=== PATIENT | male | born 1970 | race African-American/Black ===

== ENCOUNTER 2017-01-23 21:21 | Inpatient (IN) ==
[2017-01-23] MEDS ORDERED: MORPHINE 2 MG/1 ML SYRINGE IV STA (22:13)
[2017-01-23] MEDS ORDERED: SODIUM CHLORIDE 0.9% 1,000 ML IV STA (22:13)
[2017-01-23] MEDS ORDERED: ONDANSETRON 4 MG/2 ML VIAL IV STA (22:13)
[2017-01-23] MEDS ORDERED: MORPHINE 2 MG/1 ML SYRINGE ONE (22:22)
[2017-01-23] MEDS ORDERED: ONDANSETRON 4 MG/2 ML VIAL ONE (22:22)
[2017-01-23 23:06] LABS: Alanine Aminotransferase 36 U/L (16-61); Albumin 2.9 G/DL (3.4-5.0); Alkaline Phosphatase 90 U/L (45-117); Aspartate Amino Transferase 24 U/L (0-37); Bilirubin,Total < 0.39 MG/DL (0.2-1.0); Blood Urea Nitrogen 8 MG/DL (7-18); Calcium 8.1 MG/DL (8.5-10.1); Glucose 304 MG/DL (74-106); Osmolality,Calculated 291.1 MOS/KG (273-304); Potassium 4.2 MMOL/L (3.5-5.1); Sodium 142 MMOL/L (136-145); Total Protein 6.3 G/DL (6.4-8.3)
[2017-01-23 23:16] LABS: Eosinophils % 0.3 % (0.00-10.9); Hematocrit 42.1 VOL% (42.0-52.0); Hemoglobin 13.9 GM/DL (14.0-18.0); Immature Granulocytes % 0.5 %; Immature Granulocytes Absolute 0.05 #; Lymphocytes # 1.1 10*3/uL (1.4-4.0); Lymphocytes % 12.3 % (21.2-54.2); Mean Corpuscular Hemoglobin 28 PG (27-34); Mean Corpuscular Volume 83.9 FL (87-102); Mean Platelet Volume 11.1 FL (9.6-12.0); Monocytes # 0.5 10*3/uL (0.11-0.8); Monocytes % 5.1 % (1.7-12.7); Neutrophils # 7.5 10*3/uL (1.4-7.4); Neutrophils % 81.8 % (38.7-73.9); Platelet Count 155 T/CUMM (130-400); Red Blood Count 5.02 MC/CUMM (3.8-5.5); Red Cell Distribution Width 12.7 % (9.3-17.3); White Blood Count 9.2 T/CUMM (4-12)
[2017-01-23 23:31] LABS: Apearance,Urine CLEAR (Clear); Bilirubin,Urine Negative (Negative); Blood, Urine Negative (Negative); Glucose,Urine (UA) >=500 mg/dL (Negative); Ketones,Urine Negative (Negative); Mucus,Urine Occasional /LPF (Occasional); Nitrite,Urine Negative (Negative); Protein,Urine Negative; RBC,Urine 1 /HPF (0-4); Squamous Epithelial Cell,Urine Occasional /HPF (0-10); Urine Color Straw (Yellow); Urine Specific Gravity 1.033 (1.001-1.035); Urine Urobilinogen < 2.0 EU/DL (0.2-1.0); WBC,Urine 2 /HPF (0-6)
--- NOTE | 2017-01-23 23:46 | Emergency Department Note ---
ILj Kasabria, am scribing for, and in the presence of, Alejandra Garza MD 22:20. IGreg Leanne, MD, personally performed the services described in this documentation, ascribed by Alexandru Calhoun in my presence, and it is both accurate and complete . Arrival - Arrival Chief Complaint: Nausea/Vomiting/Diarrhea Stated Complaint: hurting all over/diarreha/vomitting ED Nursing Triage Note: Patient to triage with c/o 1 weeks worth of N/V/D along with ABD pain. Patient was seen here earlier today, given some medication, and sent home. Patient states the zofran has been helping some but he still feels sick. last vomitted 30 mins ago, patient had diarrhea at that time as well. Mode of Arrival: Ambulatory Limitations: No Limitations Source: Patient Time Seen by Provider: 01/23/17 22:12 - History of Present Illness HPI Narrative: This is a 46 y/o black male presenting to the ED with c/o nausea, vomiting, abdominal pain, and diarrhea that onset one week ago. Pt states he was seen earlier today and was given medication for diarrhea and was told if the problem got worse to come back to the ED. He states when he got home the vomiting onset again with diarrhea. He denies fever, chills, back pain, hematochezia, hematemesis, and dysuria. Pt has had his gallbladder removed. He has taken Zofran which has helped but still feels nauseated. Onset (ago): unknown Consistency: constant Severity: moderate Allergies/Adverse Reactions: Allergies Allergy/AdvReac Type Severity Reaction Status Date / Time Penicillins Allergy SHORTNESS Verified 01/23/17 21:35 OF BREATH Home Medications: Home Medications Medication Instructions Recorded Confirmed Type Olmesartan [Benicar] 20 mg PO QAM 11/21/14 01/23/17 History Potassium Bicarbonate/Cit AC 25 meq PO AC BREAKFAST 11/21/14 01/23/17 History [Potassium 25 Meq Tablet Eff] metFORMIN [Glucophage] 500 mg PO BID W/MEALS 11/21/14 01/23/17 History Diphenoxylate/Atrop 2.5-0.025 1 tablet PO Q6H PRN #10 tablet 01/23/17 01/23/17 Rx [Lomotil Tab] Insulin Glargine [Lantus] 60 unit SUBCUT BEDTIME 01/23/17 01/23/17 History Insulin Lispro [HumaLOG] 8 unit SUBCUT DAILY W/BREAKFAST 01/23/17 01/23/17 History Ondansetron Odt Tab [Zofran Odt] 4 mg PO Q6H PRN #12 tablet 01/23/17 01/23/17 Rx Review of System - Review of System 12 point system: reviewed and no additional remarkable complaints except as stated - Review of System Constitutional: Absent: chills, fever, weakness Eyes: Absent: vision change Head/Ears/Nose/Throat: Absent: nasal drainage Respiratory: Absent: cough, wheezing Cardiovascular: Absent: chest pain, dyspnea on exertion Gastrointestinal: Present: abdominal pain, nausea, vomiting, diarrhea Genitourinary male: Absent: dysuria Musculoskeletal: Absent: arm pain, back pain, leg pain, neck pain Skin: Absent: rash Neurological: Absent: headache, weakness, confusion, vertigo Psychiatric: Absent: anxiety Endocrine: Absent: fatigue Hematological/Lymphatic: Absent: easy bleeding Allergic/Immunologic: Absent: facial swelling Medical,Surgical,& Family Hx - Medical History Cardio: History of: Hypertension No history of: [place] Endocrine: History of: Diabetes Mellitus (IDDM), Dyslipidemia Renal: No history of: Dialysis Gastrointestinal: History of: Diverticulitis/ Diverticulosis, GI Problems ( irritable bowel syndrome) No history of: GERD, Liver Problems, Pancreatitis Other: History of: Anaphylaxis (PCN) - Surgical History Cardiac Surgeries: Sugical HX of: Cardiac Catheterization (Negative heart cath in 2011. & 08/2013) Abdominal Surgeries: Surgical HX of: Cholecystectomy Orthopedic Surgeries: Surgical HX of;: Orthopedic Surgery (knee surgery) - Family History Family History: Reports;: Family Cancer (SISTER-PELVIC), Family Diabetes (SISTER , MOTHER), Family Heart Disease (SISTER), Family Hypertension (SISTER) - Social History Smoking Status: Never smoker Frequency of Alcohol Use: None Type of Drug Use: None Exam Vital Signs: Vital Signs Temperature 97.3 F L 01/23/17 21:30 Pulse Rate 116 H 01/23/17 21:30 Respiratory Rate 18 01/23/17 21:30 Blood Pressure 137/86 01/23/17 21:30 O2 Sat by Pulse Oximetry 95 01/23/17 21:30 - General General appearance: alert, in no apparent distress - Head Head exam: Present: atraumatic, normocephalic, normal inspection - Eye Eye exam: Present: normal appearance, PERRL, EOMI - ENT ENT exam: Present: normal exam, normal oropharynx, mucous membranes moist, TM's normal bilaterally, normal external ear exam - Neck Neck exam: Present: normal inspection, full ROM, trachea midline. Absent: tenderness - Chest Chest inspection: Present: normal inspection, symmetric chest wall rise. Absent : tenderness - Respiratory Respiratory exam: Present: normal lung sounds bilaterally - Cardiovascular Cardiovascular exam: Present: regular rate, normal rhythm, normal heart sounds - Abdominal Exam Abdominal exam: Present: soft, tenderness, normal bowel sounds. Absent: distention - Extremities Exam Extremities exam: Present: normal inspection, full ROM, normal capillary refill. Absent: tenderness, pedal edema, calf tenderness - Back Exam Back exam: Present: normal inspection, full ROM. Absent: tenderness - Neurological Exam Neurological exam: Present: alert, oriented X3, CN II-XII intact, normal gait, reflexes normal - Psychiatric Psychiatric exam: Present: normal affect, normal mood - Skin Skin exam: Present: warm, dry, intact, normal color. Absent: rash, diaphoresis , erythema Results - Labs CBC & BMP: 01/23/17 22:55 01/23/17 22:27 Lab Results: I have reviewed the patients labs - Diagnostic Findings Procedure: CT Abdomen and Pelvis: report reviewed by me (w IV con: New hazy mesenteric fat stranding, with assoicated scattered prominent mesentric lymphoma some of which are midly enlarges, most consistent with mesenteric panniculitis, although, findings of lymphoma can have similar appearance, thus clinical correlation and further evaluation and /or followup are advised.) Disposition Clinical Impression: Abdominal pain, Panniculitis Case discussed with: patient Additional Instructions: will obs overnight for abd pain, vomiting.
[2017-01-23] MEDS ORDERED: ONDANSETRON 4 MG/2 ML VIAL IV PRN (23:49)
[2017-01-23] MEDS ORDERED: ACETAMINOPHEN 325 MG TABLET PO PRN (23:49)
[2017-01-23] MEDS ORDERED: DIPHENOXYLATE/ATROPINE 2.5-0.025 MG TABLET PO PRN (23:49)
[2017-01-23] MEDS ORDERED: GLUCAGON 1 MG VIAL IM PRN (23:51)
[2017-01-23] MEDS ORDERED: DEXTROSE 50% 25 GM/50 ML VIAL IV PRN (23:51)
--- NOTE | 2017-01-23 23:53 | Hospitalist History & Physical ---
Assessment and Plan (1) Mesenteric panniculitis Status: Acute Current Visit: Yes (2) Insulin dependent diabetes mellitus Status: Acute Current Visit: Yes (3) Hypertension Status: Acute Current Visit: Yes Qualifiers: Hypertension type: essential hypertension Qualified Code(s): I10 - Essential (primary) hypertension (4) Weight loss Status: Acute Current Visit: Yes (5) Abdominal pain Status: Acute Assessment and plan: Plan: Start IV antibiotics Supportive care for pain and nausea Stool for C. difficile and culture, WBCs Sliding scale insulin and Accu-Cheks, check A1c Continue remainder of home medications as appropriate. Current Visit: Yes Qualifiers: Abdominal location: lower abdomen, unspecified Qualified Code(s): R10.30 - Lower abdominal pain, unspecified History of Present Illness Chief complaint: Worsening abdominal pain, diarrhea and nausea vomiting History of present illness: Mr. Linton is a 46 year old male with hypertension, insulin-dependent diabetes who was seen previously in the emergency room for nausea vomiting abdominal pain , given antiemetics and pain medicines and released. He returns with frequent watery diarrhea, nonbloody, diffuse midabdominal pain, and multiple episodes of nonbloody emesis. CT abdomen pelvis showed mesenteric adenopathy/panniculitis. No chest pain, no fever, no shortness of breath. He states he reportedly lost about 20 pounds in the last month. He reports his pain a 7 out of 10 at worst, crampy, diffuse across the mid abdomen, nonradiating. Home Medications Medication Instructions Recorded Confirmed Type Olmesartan [Benicar] 20 mg PO QAM 11/21/14 01/24/17 History Potassium Bicarbonate/Cit AC 25 meq PO AC BREAKFAST 11/21/14 01/24/17 History [Potassium 25 Meq Tablet Eff] metFORMIN [Glucophage] 500 mg PO BID W/MEALS 11/21/14 01/24/17 History Diphenoxylate/Atrop 2.5-0.025 1 tablet PO Q6H PRN #10 tablet 01/23/17 01/24/17 Rx [Lomotil Tab] Insulin Glargine [Lantus] 60 unit SUBCUT BEDTIME 01/23/17 01/24/17 History Insulin Lispro [HumaLOG] 8 unit SUBCUT DAILY W/BREAKFAST 01/23/17 01/24/17 History Ondansetron Odt Tab [Zofran Odt] 4 mg PO Q6H PRN #12 tablet 01/23/17 01/24/17 Rx Allergies Allergy/AdvReac Type Severity Reaction Status Date / Time Penicillins Allergy SHORTNESS Verified 01/23/17 21:35 OF BREATH Medical,Surgical,& Family Hx - Medical History Cardio: History of: Hypertension No history of: [place] Endocrine: History of: Diabetes Mellitus (IDDM), Dyslipidemia Renal: No history of: Dialysis Gastrointestinal: History of: Diverticulitis/ Diverticulosis, GI Problems ( irritable bowel syndrome) No history of: GERD, Liver Problems, Pancreatitis Other: History of: Anaphylaxis (PCN) - Surgical History Cardiac Surgeries: Sugical HX of: Cardiac Catheterization (Negative heart cath in 2011. & 08/2013) Abdominal Surgeries: Surgical HX of: Cholecystectomy Orthopedic Surgeries: Surgical HX of;: Orthopedic Surgery (knee surgery) - Family History Family History: Reports;: Family Cancer (SISTER-PELVIC), Family Diabetes (SISTER , MOTHER), Family Heart Disease (SISTER), Family Hypertension (SISTER) - Social History Smoking Status: Never smoker Frequency of Alcohol Use: None Type of Drug Use: None Marital Status: Unknown Functional capacity: independent ambulation Review of systems: A 12 point review of systems is negative except as specified in the HPI Exam - Constitutional Vitals: Period Temp Pulse Resp BP Sys/Delacruz Pulse Ox Last 24 Hr 97.3 F-97.3 F 116-116 18-18 137-137/86-86 95 Exam: EXAM: CONSTITUTIONAL: non toxic, NAD HEENT: NC, AT, OP benign, KELI, EOMI CV: RRR no m/g/r RESP: clear B/L, no w/r/r GI: abd soft, diffuse midabdominal tenderness, no rebound, ND, +bowel sounds INTEGUMENTARY: no lesions or rash EXTREMITIES: no c/c/e NEURO: no focal deficits PSYCH: unremarkable, A/O x3 Results - Labs CBC & BMP: 01/23/17 22:55 01/23/17 22:27 Lab Results: I have reviewed the past 24 hour labs - Diagnostic Findings Procedure: CT Abdomen and Pelvis: image reviewed by me, report reviewed by me
[2017-01-24] MEDS ORDERED: hydrALAZINE 20 MG/1 ML VIAL IV PRN (00:19)
[2017-01-24] MEDS: INSULIN REGULAR 100 UNIT/ML SUBCUT SCH ×4 (01:01→17:35)
[2017-01-24] MEDS: CIPROFLOXACIN INJ 400 MG in PREMIX 1 EACH IV SCH ×3 (01:01→23:52)
[2017-01-24] MEDS: MORPHINE 2 MG/1 ML SYRINGE IV PRN ×2 (01:02→08:28)
--- NOTE | 2017-01-24 05:56 | CT Report ---
CT abdomen pelvis w con Indication: Bowel obstruction, nausea vomiting, abdominal pain Comparison: 08/12/2014 CT abdomen and pelvis. Technique: CT of the abdomen and pelvis was performed following administration of intravenous contrast. Coronal and sagittal reformatted images were additionally created and submitted for review. The total DLP is 2011 mGy*cm. Dose reduction: This CT exam was performed using one or more of the following dose reduction techniques: Automated exposure control, automated adjustment of the mA and/or KV according to patient size, or use of iterative reconstruction technique. Findings: Very minimal posterior basilar dependent atelectatic changes are noted bilaterally. Lung bases are otherwise clear. There is no pleural or pericardial effusion. ABDOMEN: Liver/Gallbladder: No abnormal enhancing hepatic lesions. There has been prior cholecystectomy. No biliary ductal dilatation. Portal vein is patent. Spleen: No acute findings. Pancreas: No acute findings. Adrenals: Within normal limits in appearance. Kidneys: The kidneys enhance symmetrically. There is no evidence of obstructive uropathy. There is symmetric excretion of contrast on delayed images from both kidneys. 3 cm lower pole hypodense lesion left kidney is unchanged from prior most compatible with simple cyst. Bowel/mesentery: Small bowel is nondilated. There is no evidence of free fluid/air within the abdomen. There are multiple enlarged mesenteric lymph nodes within the central mesentery with surrounding mild haziness, which is of uncertain significance. The findings are essentially unchanged from the 2014 CT abdomen and pelvis and therefore may represent a low-level infectious/inflammatory process. Neoplasm is favored to be much less likely. Moderate stool is noted throughout the colon which is otherwise nondilated. The appendix appears normal. Retroperitoneum: No evidence of aortic aneurysm or significant retroperitoneal adenopathy. PELVIS: No free fluid in the dependent pelvis. The bladder appears grossly unremarkable for degree of distention. Prostate is within normal limits. There is no adenopathy in the pelvis. BONES: No acute or suspicious osseous abnormalities are identified. IMPRESSION: 1. No acute abnormality within the abdomen or pelvis to explain patient's symptoms. 2. Essentially stable appearance of central mesenteric stranding and scattered enlarged mesenteric lymph nodes, which is essentially unchanged when compared to the 2014 CT. Differential considerations include nonspecific/idiopathic mesenteritis. Other infectious/inflammatory process such as celiac disease or neoplastic process such as lymphoma are not excluded but favored to be less likely. Preliminary report by [employer]. 01/24/2017 5:45 AM PROCEDURE INTERPRETED AT [facility] DEPARTMENT OF RADIOLOGY Final Report Signed by: Pieter Howard
[2017-01-24 06:12] LABS: Basophils % 0.1 % (0.0-0.8); Eosinophils # 0.1 10*3/uL (0.0-0.87); Eosinophils % 0.7 % (0.00-10.9); Hematocrit 40.6 VOL% (42.0-52.0); Hemoglobin 13.2 GM/DL (14.0-18.0); Immature Granulocytes % 0.4 %; Immature Granulocytes Absolute 0.03 #; Lymphocytes # 1.6 10*3/uL (1.4-4.0); Lymphocytes % 20.3 % (21.2-54.2); Mean Corpuscular HGB Conc 32.5 GM/DL (32-36); Mean Corpuscular Hemoglobin 27 PG (27-34); Mean Corpuscular Volume 84.2 FL (87-102); Monocytes # 0.5 10*3/uL (0.11-0.8); Neutrophils # 5.5 10*3/uL (1.4-7.4); Neutrophils % 71.5 % (38.7-73.9); Platelet Count 144 T/CUMM (130-400); Red Blood Count 4.82 MC/CUMM (3.8-5.5); White Blood Count 7.6 T/CUMM (4-12)
--- NOTE | 2017-01-24 06:41 | Hospitalist Progress Note ---
Assessment and Plan - Time spent with patient Time spent with patient: Less than 30 minutes (1) Abdominal pain Status: Acute Assessment and plan: At this time patient complains of lower abdominal discomfort with associated diarrhea. Prior this is been having some nausea and vomiting and reported weight loss. He is now been admitted and will continue hydration, IV antiemetics and analgesics, empiric antibiotics while awaiting stool studies, and consult GI for any further recommendations and/or follow-up. Current Visit: No (2) Diabetes mellitus Status: Chronic Assessment and plan: Patient has type 2 diabetes mellitus which is currently requiring insulin therapy. Blood sugars have been running high. Will continue his current medical regimen along with Accu-Cheks and sliding scale and adjust as appropriate. Current Visit: Yes Qualifiers: Diabetes mellitus type: type 2 (3) Hypertension Status: Chronic Assessment and plan: Patient's has essential hypertension. He is currently well controlled and continue current medical regimen. Current Visit: No (4) Weight loss Status: Chronic Assessment and plan: Have consulted GI to assist with initial workup. Further workup will proceed based on patient's clinical response and results of the pending database. Current Visit: Yes Hospitalist: Subjective Interval history: Chart has been reviewed and patient examined. Patient continues to complain of some lower abdominal discomfort and has had some watery diarrhea this morning which he reports is being collected for stool studies. He currently denies any nausea or vomiting, fever or chills. His primary care provider is Dr. Lucy Mckinney. He states that he has seen a GI physician however this been many years ago. Exam - Constitutional Vitals: Period Temp Pulse Resp BP Sys/Delacruz Pulse Ox Last 24 Hr 97.3 F-98.7 F 89-116 18-22 117-150/72-99 95-99 General appearance: no acute distress - Head Head exam: Present: normocephalic, atraumatic - Eye Eye exam: Present: EOMI. Absent: scleral icterus Pupils: Present: KELI - ENT ENT exam: Present: normal oropharynx - Neck Neck exam: Present: normal inspection. Absent: lymphadenopathy, meningismus, tenderness, thyromegaly - Respiratory Respiratory exam: Present: clear to auscultation bilaterally. Absent: rales, rhonchi, wheezes - Cardiovascular Cardiovascular exam: Present: regular rate and rhythm. Absent: gallop, systolic murmur, tachycardia - GI/Abdominal GI/Abdominal exam: Present: normal bowel sounds, soft. Absent: organomegaly, tenderness, rebound - Extremities Exam Extremities exam: Present: normal capillary refill. Absent: calf tenderness, edema - Back Exam Back exam: Present: normal inspection - Neurological Exam Neurological exam: Present: alert, oriented X3, CN II-XII intact. Absent: motor sensory deficit - Psychiatric Psychiatric exam: Present: normal affect, normal mood. Absent: agitated, anxious - Skin Skin exam: Present: warm, dry. Absent: erythema, rash Results - Labs CBC & BMP: 01/24/17 05:28 01/23/17 22:27 Lab Results: I have reviewed the past 24 hour labs - Diagnostic Findings Procedure: CT Abdomen and Pelvis: report reviewed by me
[2017-01-24 06:42] LABS: Albumin 2.6 G/DL (3.4-5.0); Bilirubin,Total 0.4 MG/DL (0.2-1.0); Magnesium 1.6 MG/DL (1.8-2.4); Osmolality,Calculated 288.1 MOS/KG (273-304); Potassium 3.8 MMOL/L (3.5-5.1); Total Protein 5.8 G/DL (6.4-8.3)
[2017-01-24 07:12] LABS: Free T4 (Free Thyroxine) 1.02 NG/DL (0.76-1.46); Thyroid Stimulating Hormone 0.768 uIU/ml (0.358-3.74)
[2017-01-24] MEDS ORDERED: MAGNESIUM SULF INJ 3 GM in SODIUM CHLORIDE 0.9% 100 ML IV ONE (08:14)
[2017-01-24] MEDS: SODIUM CHLORIDE 0.9% 1,000 ML IV SCH ×2 (08:16→22:31)
[2017-01-24] MEDS: metFORMIN 500 MG TABLET PO SCH ×2 (08:18→17:35)
[2017-01-24] MEDS: PANTOPRAZOLE 40 MG TABLET PO SCH (08:18)
[2017-01-24] MEDS: POTASSIUM BICARB EFFERVESCENT 25 MEQ TABLET PO SCH (08:18)
[2017-01-24] MEDS: OLMESARTAN 20 MG TABLET PO SCH (08:18)
[2017-01-24] MEDS: INSULIN LISPRO 100 UNIT/ML SUBCUT SCH (08:22)
--- NOTE | 2017-01-24 14:57 | Gastrointestinal Consult Note ---
Assessment and Plan - Time spent with patient Time spent with patient: Greater than 30 minutes (1) Abdominal pain Status: Acute Current Visit: No (2) Nausea and vomiting Status: Acute Current Visit: Yes (3) Abnormal findings on diagnostic imaging of abdomen Status: Acute Current Visit: Yes (4) Colon cancer screening Status: Acute Current Visit: Yes (5) Other specified counseling Status: Acute Current Visit: Yes History of Present Illness History of present illness: Mr. Linton is a 46 year old male Home Medications Medication Instructions Recorded Confirmed Type Olmesartan [Benicar] 20 mg PO QAM 11/21/14 01/24/17 History Potassium Bicarbonate/Cit AC 25 meq PO AC BREAKFAST 11/21/14 01/24/17 History [Potassium 25 Meq Tablet Eff] metFORMIN [Glucophage] 500 mg PO BID W/MEALS 11/21/14 01/24/17 History Diphenoxylate/Atrop 2.5-0.025 1 tablet PO Q6H PRN #10 tablet 01/23/17 01/24/17 Rx [Lomotil Tab] Insulin Glargine [Lantus] 60 unit SUBCUT BEDTIME 01/23/17 01/24/17 History Insulin Lispro [HumaLOG] 8 unit SUBCUT DAILY W/BREAKFAST 01/23/17 01/24/17 History Ondansetron Odt Tab [Zofran Odt] 4 mg PO Q6H PRN #12 tablet 01/23/17 01/24/17 Rx Allergies Allergy/AdvReac Type Severity Reaction Status Date / Time Penicillins Allergy SHORTNESS Verified 01/23/17 21:35 OF BREATH Medical,Surgical,& Family Hx - Medical History Cardio: History of: Hypertension No history of: MS Endocrine: History of: Diabetes Mellitus (IDDM), Dyslipidemia Renal: No history of: Dialysis Gastrointestinal: History of: Diverticulitis/ Diverticulosis, GI Problems ( irritable bowel syndrome) No history of: GERD, Liver Problems, Pancreatitis Other: History of: Anaphylaxis (PCN) - Surgical History Cardiac Surgeries: Sugical HX of: Cardiac Catheterization (Negative heart cath in 2011. & 08/2013) Thoracic Surgeries: Patient denies;: Organ Transplant Neurologic Surgeries: Patient denies: Neurologic Surgery HEENT Surgeries: Patient denies: Tonsilectomy & Adenoidectomy Abdominal Surgeries: Surgical HX of: Cholecystectomy Orthopedic Surgeries: Surgical HX of;: Orthopedic Surgery (knee surgery) - Family History Family History: Reports;: Family Cancer (SISTER-PELVIC), Family Diabetes (SISTER , MOTHER), Family Heart Disease (SISTER), Family Hypertension (SISTER) - Social History Smoking Status: Never smoker Frequency of Alcohol Use: None Type of Drug Use: None Exam - Constitutional Vitals: Period Temp Pulse Resp BP Sys/Delacruz Pulse Ox Last 24 Hr 97.3 F-98.7 F 73-116 18-22 100-150/47-99 95-100 Results - Labs CBC & BMP: 01/24/17 05:28 01/24/17 05:28 Note Addendum: PLEASE NOTE -- automatic citation of patient information is unavoidable in this electronic note. I have made a reasonable effort to review the information cited , but it is not a part of my evaluation, impression, or recommendation unless specifically discussed in the dictated text that follows. As well, voice recognition software was used in the creation of this clinical note. Reasonable effort was made to identify and correct gross errors. Despite proofreading, errors in roving frame tender may be present, including nonsense verbiage at times. If you encounter such an error, please contact me at for discussion and correction. -- Alejandro Chief complaint: nausea, vomiting, abdominal pain History of present illness: This is a new patient, a 46-year-old male seen by consultation for evaluation of abdominal pain and abnormal CT findings. The patient is admitted to the hospitalist service under the care of Dr. Kwon with a primary diagnosis of mesenteric panniculitis. The patient was admitted yesterday through the emergency department with primary complaint of persistent abdominal pain, nausea, vomiting, and diarrhea. Evaluation at that time revealed mild hyperglycemia, electrolyte disturbances, and abnormal CT scan with finding of mesenteric stranding and scattered enlarged mesenteric lymph nodes similar to findings on a previous CT scan from 2013. The patient has been treated with empiric antibiotic, crystalloid resuscitation, proton pump inhibitor, and electrolyte correction. With this he reports feeling a good deal better today. With the vomiting, he reports primarily clear material coming up with little food and no blood. He has been able to tolerate a clear liquid diet today without any difficulty. He reports having had a similar circumstance about three years ago and underwent upper endoscopy at that time with finding of gastritis, he believes. He has never had colonoscopy. Patient denies headache, dizziness, neck pain, visual changes, redness of the eyes, dysphagia, odynophagia, difficulty chewing, chest pain, shortness of breath, hematemesis, hematochezia, melena, proctalgia, constipation, dysuria, skin changes, temperature regulation issues, flushing, easy bleeding/bruising, musculoskeletal pain, mental status change, numbness/weakness in the extremities , yellowing of the eyes/skin, cutaneous eruptions, family history of gastrointestinal cancer and colon polyps, and other complaints in general. Review of systems: 12 point review of systems was negative except as documented above. Outpatient medications: Glucophage, potassium, Zofran, Benicar, Humalog, Lantus , Lomotil Inpatient medications: Tylenol, ciprofloxacin, Lomotil, glucagon, hydralazine, [place], Lantus, Humalog, Humulin, Glucophage, morphine sulfate, Benicar, Zofran, Protonix, potassium, sodium chloride infusion Past Medical History: hypertension, diabetes, dyslipidemia, diverticulitis/ diverticulosis, irritable bowel syndrome Social history: negative tobacco. Negative alcohol Family history: no gastrointestinal cancers Physical examination: Vital Signs: Current vital signs reviewed and documented above. General Appearance: well-appearing. Not acutely ill. Head: Normocephalic. Neck: Palpation of the neck revealed no abnormalities. Eyes: No scleral icterus. No scleral injection. No conjunctival pallor. Oral Cavity: Odor of breath was normal. No drooling was observed. Lips showed no abnormalities. Floor of the mouth showed no abnormalities. Pharynx: Oropharynx was normal. Lungs: Respiration rhythm and depth was normal. Cardiovascular: Heart rate and rhythm were normal. No murmurs were appreciated. Abdomen: abdomen was not distended. Abdominal palpation revealed no tenderness and no hepatosplenomegaly. Ascites was not discovered. Abdominal auscultation revealed positive bowel sounds. Musculoskeletal System: Musculoskeletal system was grossly normal. Neurological: level of consciousness was normal. Speech was normal. Skin: General appearance was normal. Color and pigmentation were normal. No skin lesions. Laboratory: white blood count 7.6, hemoglobin 13.2, hematocrit 40.6, platelets 144, sodium 142, chloride 110, potassium 3.8, BUN nine, creatinine 0.8, calcium 8.0, magnesium 1.6, ALT 29, AST 16, total bilirubin 0.4, alkaline phosphatase 81 , total protein 5.8, albumin 2.6, lipase 196, urine leukocytes positive Radiology: CT of the abdomen and pelvis, January 23, 2017 -- no acute abnormality; stable appearance of central mesenteric stranding and scattered in large mesenteric left notes essentially unchanged compared to CT from 2014 Impressions: 1. Abdominal pain -- the differential diagnosis includes gastritis, peptic ulcer , pancreatic or biliary disease, functional abdominal pain, acute gastrointestinal infection, medication related affect, secondary effect of hyperglycemia, mesenteric paniculitis, and others. I recommend continued supportive care with crystalloid resuscitation and careful advancement of diet. Continued antibiotic is reasonable for a total of 7 to 10 days therapy. We will plan upper endoscopy tomorrow to ensure no evidence of luminal gut disease. We will follow up with further recommendations pending the result of that exam. 2. Nausea with vomiting -- the patient reports near complete resolution of this symptom. I recommend continued anti-emetic as needed. 3. Abnormal imaging of abdominal contents -- the patient has evidence of chronic mesenteric inflammatory change. This is a nonspecific funding and is sometimes associated with chronic inflammatory enterocolitis. It can also be associated with mesenteric or enteric lymphoma though this would seem to be a good deal less likely sense it has been present for at least three or four years. Definitive diagnosis typically requires surgical biopsy and this would be a reasonable consideration at this point. Irrespective of this, the patient will need colonoscopy during convalescence to ensure no luminal got disease. 4. Colorectal cancer screening -- the patient is due for same. In general he is at average risk for colorectal cancer and will need screening no less frequently than every 10 years. This can be accomplished in the outpatient setting during convalescence. 5. Other specified counseling -- The patient was seen for greater than 30 minutes. The patient was counseled for greater than 50% of this time regarding differential diagnosis, likely diagnosis, diagnostic and therapeutic alternatives, risks/benefits/alternatives of medications and procedures, and plan of care generally. The patient expressed understanding and wishes to proceed. Recommendations: -- continue crystalloid resuscitation and supportive care generally -- aggressive control of electrolytes and glucose -- minimize medications to whatever extent possible -- continue antibiotic for a total of 7-10 days -- upper endoscopy tomorrow -- colonoscopy in the outpatient setting during convalescence -- consider outpatient surgical consultation for evaluation of chronic mesenteric inflammation and lymphadenopathy -- thank you for this consultation. Dr. Ibrahim will assume G.I. care for this patient tomorrow.
[2017-01-24] MEDS: INSULIN GLARGINE 100 UNIT/ML SUBCUT SCH (21:07)
[2017-01-25] MEDS: INSULIN REGULAR 100 UNIT/ML SUBCUT SCH ×5 (00:20→23:29)
[2017-01-25 05:11] LABS: Basophils % 0.2 % (0.0-0.8); Eosinophils # 0.1 10*3/uL (0.0-0.87); Hematocrit 39.4 VOL% (42.0-52.0); Hemoglobin 12.6 GM/DL (14.0-18.0); Immature Granulocytes % 0.4 %; Immature Granulocytes Absolute 0.02 #; Lymphocytes # 1.6 10*3/uL (1.4-4.0); Lymphocytes % 29.9 % (21.2-54.2); Mean Corpuscular Hemoglobin 27 PG (27-34); Mean Corpuscular Volume 83.7 FL (87-102); Mean Platelet Volume 11.3 FL (9.6-12.0); Monocytes # 0.4 10*3/uL (0.11-0.8); Monocytes % 7.5 % (1.7-12.7); Neutrophils # 3.2 10*3/uL (1.4-7.4); Platelet Count 141 T/CUMM (130-400); Red Blood Count 4.71 MC/CUMM (3.8-5.5); Red Cell Distribution Width 13.1 % (9.3-17.3); White Blood Count 5.2 T/CUMM (4-12)
[2017-01-25 05:48] LABS: Calcium 7.7 MG/DL (8.5-10.1); Osmolality,Calculated 283.3 MOS/KG (273-304); Potassium 3.8 MMOL/L (3.5-5.1)
[2017-01-25] MEDS: metFORMIN 500 MG TABLET PO SCH (08:23)
[2017-01-25] MEDS: INSULIN LISPRO 100 UNIT/ML SUBCUT SCH (08:23)
[2017-01-25] MEDS: POTASSIUM BICARB EFFERVESCENT 25 MEQ TABLET PO SCH (08:23)
[2017-01-25] MEDS: PANTOPRAZOLE 40 MG TABLET PO SCH (08:23)
[2017-01-25] MEDS: OLMESARTAN 20 MG TABLET PO SCH (08:23)
[2017-01-25] MEDS: SODIUM CHLORIDE 0.9% 1,000 ML IV SCH ×2 (09:50→13:12)
--- NOTE | 2017-01-25 10:13 | History and Physical Update ---
History and Physical Update - Physical Exam Mental Status: alert and oriented Heart: regular rate and rhythm Lung: clear to auscultation Abdomen: within normal limits Vitals: within normal limits
--- NOTE | 2017-01-25 10:23 | Operative Note ---
Date of procedure: 01/25/17 Pre-op diagnosis: Abdominal pain and abnormal CT of the abdomen Procedure: EGD 46-year-old gentleman with complaints of abdominal pain CT scan showing diffuse adenopathy of unclear etiology now for EGD to further evaluate. Informed symptoms obtained the patient He was sedated with MAC anesthesia per anesthesia protocol. Patient was placed in left lateral decubitus position the Olympus flexible video upper endoscope was inserted into the oral cavity under direct vision the esophagus was intubated. Findings: Esophagus-normal proximal mid esophageal mucosa distal esophagus with small hiatal hernia no significant esophagitis, Watson's, varices or stricture was identified. Stomach-normal insufflation normal mucosa to direct retroflexed views of the body, fundus, cardia and antrum the stomach. Pylorus-normal Duodenum-normal for the bulb and duodenum to the third portion of duodenum. The ampulla was normal. The procedure terminated. Placed our procedure well his discharge recovery in good condition. Postop diagnosis: 1. Small hiatal hernia-continue PPI treatment antireflux precautions. 2. No definitive explanation for adenopathy on CT identified continue antibiotics and observe if no clinical improvement may need to consider laparoscopy for tissue sampling. Anesthesia: MAC Surgeon / Physician: Olu Ibrahim Estimated blood loss: none Specimens: none sent Condition: stable Disposition: post procedure unit Results - Labs CBC & BMP: 01/25/17 04:36 01/25/17 04:36 Discharge Plan - Discharge Medications No Action metFORMIN [Glucophage] 500 mg PO BID W/MEALS Potassium Bicarbonate/Cit AC [Potassium 25 Meq Tablet Eff] 25 meq PO AC BREAKFAST Olmesartan [Benicar] 20 mg PO QAM Diphenoxylate/Atrop 2.5-0.025 [Lomotil Tab] 1 tablet PO Q6H PRN #10 tablet PRN Reason: Diarrhea Insulin Glargine [Lantus] 60 unit SUBCUT BEDTIME Insulin Lispro [HumaLOG] 8 unit SUBCUT DAILY W/BREAKFAST Ondansetron Odt Tab [Zofran Odt] 4 mg PO Q6H PRN #12 tablet PRN Reason: Nausea - Follow Up or Referral - Forms/Instructions
--- NOTE | 2017-01-25 10:43 | Anesthesia Post-Op ---
Anesthesia Post OP - Post Ansesthetic Evaluation Patient seen in post op: Yes Resp: within normal limits CV: within normal limits Mental: within normal limits Temp: within normal limits [id number]: within normal limits Nausea and Vomiting: within normal limits Pain: within normal limits
[2017-01-25] MEDS: CIPROFLOXACIN INJ 400 MG in PREMIX 1 EACH IV SCH ×2 (11:45→23:30)
--- NOTE | 2017-01-25 15:18 | Hospitalist Progress Note ---
Assessment and Plan (1) Abdominal pain Status: Acute Assessment and plan: EGD shows hiatal hernia. Diarrhea, negative for infection. Will stop metformin , cont protonix Current Visit: No (2) Poorly controlled diabetes mellitus Status: Chronic Assessment and plan: cont lantus 60 units SQ at bedtime Current Visit: No (3) Hypertension Status: Chronic Assessment and plan: controlled cont benicar Current Visit: No Hospitalist: Subjective Interval history: EGD only showed a hiatal hernia. Patient very tender in the epigastric region. Exam - Constitutional Vitals: Period Temp Pulse Resp BP Sys/Delacruz Pulse Ox Last 24 Hr 97.7 F-98.3 F 69-86 18-24 101-132/58-086 26-100 Exam: Heart Rate-[RRR] Lungs-[CTAB] GI-[+bs soft, obese, epigastric tenderness ] Ext-[no edema] Neuro [Motor 5/5], [alert and oriented times 3] psych [normal mood and affect] General [no acute distress] Results - Labs CBC & BMP: 01/25/17 04:36 01/25/17 04:36 Lab Results: I have reviewed the past 24 hour labs Labs: Stool cultures negative, no evidence of C. difficile - Diagnostic Findings Procedure: CT Abdomen and Pelvis: report reviewed by me (enlarged mesenteric lymph nodes )
[2017-01-25] MEDS: metroNIDAZOLE INJ 500 MG in PREMIX 1 EACH IV SCH ×2 (16:32→21:14)
[2017-01-25] MEDS: INSULIN GLARGINE 100 UNIT/ML SUBCUT SCH (21:20)
[2017-01-26] MEDS: metroNIDAZOLE INJ 500 MG in PREMIX 1 EACH IV SCH ×2 (06:22→09:18)
[2017-01-26] MEDS: INSULIN REGULAR 100 UNIT/ML SUBCUT SCH (06:27)
--- NOTE | 2017-01-26 09:07 | Gastrointestinal Progress Note ---
<Rose Mary Correa - Last Filed: 01/26/17 09:05> Assessment and Plan (1) Abdominal pain Status: Acute Assessment and plan: 01/26-abdominal pain improved. Tolerating diet. EGD findings noted. For tentative discharge home today. Plan an addendum to follow by Dr. Ibrahim. Gastroenterology - PN: Subj Interval history: CC: Abdominal pain Patient is seen awake alert sitting up in bed. States he had an uneventful night. He states that his abdominal pain has improved and he denies any vomiting. He does still have some mild nausea following ingestion of a meal. He had a good appetite this morning and tolerated his breakfast well. Abdomen is soft, nontender at this time. EGD findings noted with small hiatal hernia. He states he is for discharge home today. ROS: Denies shortness of breath or chest pain Exam (Progress Note) - Constitutional Vitals: Period Temp Pulse Resp BP Sys/Delacruz Pulse Ox Last 24 Hr 97.6 F-98.0 F 76-86 18-24 101-146/58-086 26-100 General appearance: no acute distress, over weight - Head Head exam: Present: normal inspection, normocephalic - Eye Eye exam: Present: other (Lids and conjunctive are unremarkable). Absent: scleral icterus - ENT ENT exam: Present: normal exam, normal oropharynx - Neck Neck exam: Present: normal inspection - Respiratory Respiratory exam: Present: clear to auscultation bilaterally. Absent: rales, rhonchi, wheezes - Cardiovascular Cardiovascular exam: Present: regular rate and rhythm. Absent: diastolic murmur , JVD, systolic murmur - GI/Abdominal GI/Abdominal exam: Present: normal bowel sounds, soft. Absent: ascites, distended, mass, organomegaly, tenderness - Extremities Exam Extremities exam: Present: normal inspection, full ROM - Back Exam Back exam: Present: normal inspection - Neurological Exam Neurological exam: Present: alert, oriented X3 - Psychiatric Psychiatric exam: Present: normal affect, normal mood - Skin Skin exam: Present: normal color, warm, dry Results - Labs CBC & BMP: 01/25/17 04:36 01/25/17 04:36 Lab Results: I have reviewed the past 24 hour labs Specialty Discharge - Follow Up or Referrals Follow up with: dr anshu [Other] - 2 Weeks (checking his diabetes off metformin ) Darrian Cortez MD [Physician] - 02/25/17 9:00 am (mediastinal lymph nodes patient need to bring ID, Insurance card and list of meds) <Olu Ibrahim - Last Filed: 01/26/17 19:07> Exam (Progress Note) - Constitutional Vitals: Period Temp Pulse Resp BP Sys/Delacruz Pulse Ox Last 24 Hr 97.4 F-98.0 F 72-83 18-20 112-146/60-81 96-100 Results - Labs CBC & BMP: 01/25/17 04:36 01/25/17 04:36
[2017-01-26] MEDS: PANTOPRAZOLE 40 MG TABLET PO SCH (09:16)
[2017-01-26] MEDS: OLMESARTAN 20 MG TABLET PO SCH (09:16)
[2017-01-26 10:12] VITALS: BP 140/75
[2017-01-26] MEDS: INSULIN LISPRO 100 UNIT/ML SUBCUT SCH (10:37)
--- NOTE | 2017-01-26 11:21 | Discharge Summary ---
Hospital Course - Hospital Course Hospital Course: 46 year-old morbidly obese male with a history of hypertension and insulin-dependent diabetes presents to emergency room with complaints of abdominal pain and diarrhea. CT of the abdomen and pelvis showed some mesenteric stranding with enlarged lymph nodes but this is relatively unchanged since 2013. His white count is completely normal since admission and he has been afebrile. He was started on Cipro and Flagyl IV. Dr. Ibrahim from GI was consulted. An EGD was done on him yesterday which showed a small hiatal hernia but otherwise unremarkable. We will finish 11 more days of Cipro and Flagyl and have him follow-up with repeat abdominal CT to see Dr. Cortez. He has a lymph nodes do not resolve may have to consider biopsy of the lymph nodes. I think some of his diarrhea and nausea are due for potassium and metformin. We have held these for now to see if they are contributing to his symptoms. I really recognize that he has been on those for a while but he could easily cause stomach upset. Patient will be discharged home today to follow-up with his primary care doctor in 1-2 weeks for checking his diabetes and in [address] Cortez with a repeat abdominal pelvic CT with contrast. - Time spent with patient Time with patient DS: Less than 30 minutes (25 min) Diagnosis - Discharge Diagnosis (1) Abdominal pain Status: Acute (2) Poorly controlled diabetes mellitus Status: Chronic (3) Hypertension Status: Chronic Specialty Discharge - Follow Up or Referrals Follow up with: dr anshu [Other] - 2 Weeks (checking his diabetes off metformin ) Darrian Cortez MD [Physician] - 1 Month (mediastinal lymph nodes ) Discharge Plan - Discharge Data Disposition: Disch To Home/Self Care Condition at Discharge: Stable Discharge Diet: diabetic diet Activity: resume usual activities as tolerated Hygiene: no restrictions Weight Bearing at Discharge: full weight bearing - Discharge Medications New HYDROcodone/ACETAMIN 5-325 [Lee 5-325] 1 tablet PO Q4H PRN #20 tablet PRN Reason: Pain Mild (1-3) Pantoprazole Tab [Protonix Tab] 40 mg PO DAILY tablet Ciprofloxacin HCl [Ciprofloxacin Tab] 500 mg PO BID #22 tablet metroNIDAZOLE TAB [Flagyl Cap/Tab] 500 mg PO QID #44 tablet Continue Olmesartan [Benicar] 20 mg PO QAM Diphenoxylate/Atrop 2.5-0.025 [Lomotil Tab] 1 tablet PO Q6H PRN #10 tablet PRN Reason: Diarrhea Insulin Lispro [HumaLOG] 8 unit SUBCUT DAILY W/BREAKFAST Ondansetron Odt Tab [Zofran Odt] 4 mg PO Q6H PRN #12 tablet PRN Reason: Nausea Changed Insulin Glargine [Lantus] 65 unit SUBCUT BEDTIME #0 Discontinued metFORMIN [Glucophage] 500 mg PO BID W/MEALS Potassium Bicarbonate/Cit AC [Potassium 25 Meq Tablet Eff] 25 meq PO AC BREAKFAST - Follow Up or Referral Follow Up: Darrian Cortez MD [Physician] - 1 Month (mediastinal lymph nodes ) dr anshu [Other] - 2 Weeks (checking his diabetes off metformin ) - Forms/Instructions Additional Discharge Instructions: repeat ct abdomen/pelvis with IV and po contrast in 4 weeks. Want him to stay off the potassium and metformin because of his recent stomach upset. Exam - Constitutional Vitals: Period Temp Pulse Resp BP Sys/Delacruz Pulse Ox Last 24 Hr 97.4 F-98.0 F 72-84 18-20 112-146/60-81 95-100 General appearance: normal weight, no acute distress - Respiratory Respiratory exam: Present: clear to auscultation bilaterally. Absent: rhonchi, wheezes - Cardiovascular Cardiovascular exam: Present: regular rate and rhythm. Absent: systolic murmur - GI/Abdominal GI/Abdominal exam: Present: normal bowel sounds, soft. Absent: tenderness - Extremities Exam Extremities exam: Present: normal inspection, normal capillary refill - Neurological Exam Neurological exam: Present: alert, oriented X3 Discharge Results Procedures and tests throughout hospitalization: Pending Orders 01/24/17 06:05 Occult Blood, Stool Routine Labs on day of discharge: Labs from last 24 hours 01/26/17 01/25/17 01/25/17 06:21 23:23 17:45 POC Glucose 157 H 222 H 158 H 01/25/17 11:31 POC Glucose 162 H DS: Provider Date of admission: 01/23/17 23:49 Primary care physician: Nonstaff Physician Attending physician on admission: Nima Kwon DO Consults: 01/24/17 06:45 Consult to Physician [CONS] Routine Comment: abd pain, diarrhea, weight loss Consulting Provider: Alejandro,Sanju V Discharging clinician: Candace Kimble MD
== END 2017-01-26 12:25 | disposition home or self-care (01) | DRG 392 ==
LOC: N.ED 21:21 → SUATTDRO 23:49 → N.EDINP 23:49 → N.5E 01-24 00:10
PROVIDERS: ADMIT Internal Medicine; ATTEND Internal Medicine

== ENCOUNTER 2018-12-01 18:05 | Observation (INO) ==
[2018-12-01] MEDS ORDERED: ONDANSETRON 4 MG/2 ML VIAL IV STA (18:24)
[2018-12-01] MEDS ORDERED: ASPIRIN 325 MG TABLET PO STA (18:24)
[2018-12-01] MEDS ORDERED: NITROGLYCERIN 2% OINT 1 INCH/GM PACK TOP STA (18:24)
[2018-12-01] MEDS ORDERED: MORPHINE 4 MG/1 ML VIAL IV STA (18:24)
[2018-12-01 18:46] LABS: Basophils % 0.2 % (0.0-0.8); Eosinophils # 0.1 10*3/uL (0.0-0.87); Eosinophils % 1.2 % (0.00-10.9); Hematocrit 42.2 VOL% (42.0-52.0); Hemoglobin 13.1 GM/DL (14.0-18.0); Immature Granulocytes % 0.8 %; Immature Granulocytes Absolute 0.05 #; Lymphocytes # 0.5 10*3/uL (1.4-4.0); Lymphocytes % 7.5 % (21.2-54.2); Mean Corpuscular Hemoglobin 27 PG (27-34); Mean Corpuscular Volume 86.7 FL (87-102); Mean Platelet Volume 10.1 FL (9.6-12.0); Monocytes # 0.2 10*3/uL (0.11-0.8); Monocytes % 3.3 % (1.7-12.7); Neutrophils # 5.2 10*3/uL (1.4-7.4); Platelet Count 156 T/CUMM (130-400); Red Blood Count 4.87 MC/CUMM (3.8-5.5); Red Cell Distribution Width 13.4 % (9.3-17.3)
[2018-12-01 19:15] LABS: Albumin 3.3 G/DL (3.4-5.0); Bilirubin,Total 0.6 MG/DL (0.2-1.0); Calcium 8.1 MG/DL (8.5-10.1); Osmolality,Calculated 281.4 MOS/KG (273-304); Potassium 4.1 MMOL/L (3.5-5.1); Total Protein 6.9 G/DL (6.4-8.3)
[2018-12-01 20:18] LABS: INR 0.9; PT Patient Result 9.8 SECS
[2018-12-01] MEDS ORDERED: DOCUSATE SODIUM 100 MG CAPSULE PO PRN (22:55)
[2018-12-01] MEDS ORDERED: MORPHINE 4 MG/1 ML VIAL IV PRN (22:55)
[2018-12-01] MEDS ORDERED: ZALEPLON 5 MG CAPSULE PO PRN (22:55)
[2018-12-01] MEDS ORDERED: ACETAMINOPHEN 325 MG TABLET PO PRN (22:55)
[2018-12-01] MEDS ORDERED: ONDANSETRON 4 MG/2 ML VIAL IV PRN (22:55)
[2018-12-01] MEDS ORDERED: NITROGLYCERIN SL 0.4 MG TABLET SL PRN (22:58)
[2018-12-01] MEDS ORDERED: GLUCAGON 1 MG VIAL IM PRN (22:59)
[2018-12-01] MEDS ORDERED: DEXTROSE 50% 25 GM/50 ML SYRINGE IV PRN (22:59)
[2018-12-01] MEDS ORDERED: INSULIN GLARGINE 100 UNIT/ML SUBCUT SCH (23:00)
[2018-12-01] MEDS ORDERED: ENOXAPARIN 40 MG/0.4 ML SYRINGE SUBCUT SCH (23:00)
[2018-12-02 06:39] LABS: Hematocrit 38.7 VOL% (42.0-52.0); Hemoglobin 12.1 GM/DL (14.0-18.0); Immature Granulocytes % 0.5 %; Immature Granulocytes Absolute 0.02 #; Lymphocytes # 0.5 10*3/uL (1.4-4.0); Lymphocytes % 13.1 % (21.2-54.2); Mean Corpuscular HGB Conc 31.3 GM/DL (32-36); Mean Corpuscular Hemoglobin 27 PG (27-34); Mean Corpuscular Volume 85.8 FL (87-102); Mean Platelet Volume 11.1 FL (9.6-12.0); Monocytes # 0.2 10*3/uL (0.11-0.8); Monocytes % 4.9 % (1.7-12.7); Neutrophils # 3.3 10*3/uL (1.4-7.4); Neutrophils % 80.5 % (38.7-73.9); Platelet Count 151 T/CUMM (130-400); Red Blood Count 4.51 MC/CUMM (3.8-5.5); Red Cell Distribution Width 13.5 % (9.3-17.3); White Blood Count 4.1 T/CUMM (4-12)
[2018-12-02 06:46] LABS: Osmolality,Calculated 282.4 MOS/KG (273-304); Potassium 3.8 MMOL/L (3.5-5.1); Risk Ratio 2.34; Thyroid Stimulating Hormone 0.466 uIU/ml (0.358-3.74)
[2018-12-02] MEDS: INSULIN LISPRO 100 UNIT/ML SUBCUT SCH ×2 (07:57→11:06)
[2018-12-02] MEDS ORDERED: KETOROLAC 30 MG/1 ML VIAL IV ONE (08:30)
[2018-12-02] MEDS ORDERED: ALUM/MAG/SIMETH/LIDO VISC 1:1 30 ML BOTTLE PO ONE (08:33)
[2018-12-02] MEDS ORDERED: LOSARTAN 50 MG TABLET PO SCH (09:00)
[2018-12-02] MEDS ORDERED: PANTOPRAZOLE 40 MG TABLET PO SCH (09:00)
[2018-12-02] MEDS ORDERED: ASPIRIN EC 81 MG TABLET PO SCH (09:00)
[2018-12-02 09:01] LABS: Troponin I < 0.015 NG/ML (0.00-0.045)
[2018-12-02 09:01] LABS: Troponin I < 0.015 NG/ML (0.00-0.045)
[2018-12-02 11:35] VITALS: BP 107/59
[2018-12-02 11:38] LABS: Apearance,Urine Slightly Hazy (Clear); Bilirubin,Urine Negative (Negative); Blood, Urine Moderate mg/dL (Negative); Glucose,Urine (UA) Negative (Negative); Ketones,Urine Negative (Negative); Mucus,Urine Few /LPF (Occasional); Nitrite,Urine Negative (Negative); Protein,Urine Negative; RBC,Urine 1 /HPF (0-4); Squamous Epithelial Cell,Urine Occasional /HPF (0-10); Urine Color Yellow (Yellow); Urine Urobilinogen < 2.0 EU/DL (0.2-1.0); WBC,Urine 1 /HPF (0-6)
== END 2018-12-02 14:30 | disposition home or self-care (01) ==
LOC: EDUNIT# → EDBD → N.EDINP 18:05 → N.ED 18:05 → N.5E 23:31
PROVIDERS: ADMIT Internal Medicine; ATTEND Internal Medicine